=== PATIENT | male | born 1940 | race Caucasian/White ===

== ENCOUNTER → 2017-10-10 | Outpatient (CLI) | payer MEDICARE, OTHER | END | disposition home or self-care (01) | LOC: RAD 13:05 | DX: J43.8 Other emphysema (principal); I11.0 Hypertensive heart disease with heart failure; I50.9 Heart failure, unspecified; E11.9 Type 2 diabetes mellitus without complications | CPT/HCPCS: 71046 ==

== ENCOUNTER → 2018-06-16 | Day surgery (SDC) | payer MEDICARE, OTHER ==
[~2018-06-16] MED LIST: ASCO500T2 PO; ASPI-252 PO; ASPI-630 PO; CELE200C PO; CLOP75TA PO; FERR325T14 PO; GABA300C18 PO; GEMF600T8 PO; HYDROmorphone 2 MG/ML VIAL IV PRN; IV RINGERS,LACTATED 1000ML 1,000 ML IV SCH; LIDOCAINE 1% PF 2 ML VIAL. ID PRN; LIDOCAINE 1% PF 2 ML VIAL. ONE; LOSA1TAB19 PO; METF500T16 PO; METO25TA4 PO; MORPHINE SULFATE 2 MG/ML VIAL. IV PRN; NIAC1000 PO; OMEG-123 PO; ONDANSETRON PF 4 MG/2 ML VIAL. IV PRN; OXYC1TAB15 PO; PROCHLORPERAZINE 10 MG/2 ML VIAL. IV PRN; PROPOFOL 40 ML IV ONE; PYRI25TA2 PO; UBID50TA PO; VITA10003 PO; VITA1TAB54 PO; fentaNYL PF VIAL 100 MCG/2 ML VIAL IV PRN
[2018-06-16 11:13] VITALS: BP 140/58
--- NOTE | 2018-06-16 21:36 | CONS ---
DATE OF CONSULTATION: 06/16/2018 UPDATE HISTORY AND PHYSICAL REFERRING PHYSICIAN: Christina Bhakta M.D. REASON FOR CONSULTATION: Anemia. HISTORY OF PRESENT ILLNESS: A 77-year-old male whose past medical history is significant for diabetes, GERD, history of organic heart disease, status post ID, history of collagenous colitis and diarrhea, seen for interval colon exam. Bowel habits have been regular, without diarrhea or constipation. Hemoglobin has been 12.4. No family history of colon polyps or colon cancer is noted. His last colonoscopy was in 2013. With the recent lab findings, he requested additional evaluation. PAST MEDICAL HISTORY: Hypertension, diabetes and anemia. ALLERGIES: IODINE, STATINS, TIERNEY, BACITRACIN, NEOMYCIN AND POLYMYXIN B. MEDICATIONS: Include vitamin C, Ecotrin, Plavix, ferrous sulfate, gabapentin, gemfibrozil, losartan, metformin, metoprolol, Niaspan and pyridoxine. FAMILY AND SOCIAL HISTORY: He is retired. He is a nondrinker. Nonsmoker. PAST SURGICAL HISTORY: Status post appendectomy, back surgery, CABG, eye surgery, joint replacement, hernia repair and vasectomy. REVIEW OF SYSTEMS: Per records. PHYSICAL EXAMINATION: GENERAL: Reveals a well-nourished, well-developed male. VITAL SIGNS: Temperature 98.5, pulse 91 and respirations 20. HEENT EXAMINATION: Normocephalic, atraumatic head. Pupils and extraocular movements are not tested. Sclerae anicteric. NECK: Supple. LUNGS: Clear. CARDIOVASCULAR EXAMINATION: Reveals an S1, S2 without S3, S4 or appreciable murmur. ABDOMEN: Examination reveals a soft abdomen. Normal bowel sounds, without appreciable hepatosplenomegaly. EXTREMITIES: Examination reveals no cyanosis, clubbing or edema. IMPRESSION AND PLAN: Anemia, history of collagenous colitis. Colonoscopy interval is recommended. Risks and benefits have been discussed. The patient is willing to proceed at this time. I would like to thank Dr. Bhakta for allowing us to consult and participate in this patient's care. JOANNA BUTCHER MD DR: MALACHI/kierra JOB#: [id number] / [id number]
--- NOTE | 2018-06-19 15:06 | PATHOLOGY ---
[facility] Accession Number: [id number] . 01 Material submitted: . SIGMOID POLYP . 01 Clinical history: . Anemia . 02 Diagnosis: Colon biopsy, sigmoid polyp: - Hyperplastic polyp. LBQ/06/19/2018 . 02 Comment: There are no adenomatous changes or evidence of malignancy. (JPM/db; 06/19/2018) . 02 Electronically signed: . Jeffrey Fuentes MD, Pathologist NPI- [id number] . 01 Gross description: . Received in formalin labeled "Anthony Brownlee, sigmoid polyp," are 2 segments of reid soft tissue measuring 0.9 x 0.3 x 0.2 cm in aggregate dimensions and ranging from 0.4 to 0.5 cm in maximum dimension. The specimen is submitted entirely in cassette A1. (TSD; 06/16/2018) TOB/TOB . 02 Pathologist provided ICD-10: K63.5 . 02 CPT . 847999 Specimen Comment: A courtesy copy of this report has been sent to Specimen Comment: [phone], . Specimen Comment: Report sent to and Specimen Comment: A duplicate report has been generated due to demographic updates. Performed at: 01 [facility] [address], [place], [place] [id number] MD Ford Christian MD Phone: [phone] Performed at: 02 [facility] [address] [place], [place] [id number] MD Jeffrey Fuentes MD Phone: [phone]
== END | disposition home or self-care (01) ==
LOC: SURG 08:53
PROVIDERS: ATTEND Internal Medicine Gastroenterology
DX: K63.5 Polyp of colon (principal); K57.30 Diverticulosis of large intestine without perforation or abscess without bleeding; K64.0 First degree hemorrhoids; D50.9 Iron deficiency anemia, unspecified; E11.9 Type 2 diabetes mellitus without complications; K21.9 Gastro-esophageal reflux disease without esophagitis; I25.2 Old myocardial infarction; I11.9 Hypertensive heart disease without heart failure; Z88.1 Allergy status to other antibiotic agents; Z88.8 Allergy status to other drugs, medicaments and biological substances; Z79.899 Other long term (current) drug therapy; Z90.49 Acquired absence of other specified parts of digestive tract; Z95.5 Presence of coronary angioplasty implant and graft; Z98.52 Vasectomy status; Z98.890 Other specified postprocedural states; Z91.041 Radiographic dye allergy status; Z79.84 Long term (current) use of oral hypoglycemic drugs
CPT/HCPCS: 45380; J2704; 88305

== ENCOUNTER → 2019-04-23 | Outpatient (CLI) | payer MEDICARE, OTHER ==
[2018-06-16 11:13] VITALS: BP 140/58
[~2019-04-23] MED LIST changes: -HYDROmorphone 2 MG/ML VIAL IV PRN; -IV RINGERS,LACTATED 1000ML 1,000 ML IV SCH; -LIDOCAINE 1% PF 2 ML VIAL. ID PRN; -LIDOCAINE 1% PF 2 ML VIAL. ONE; -MORPHINE SULFATE 2 MG/ML VIAL. IV PRN; -ONDANSETRON PF 4 MG/2 ML VIAL. IV PRN; -PROCHLORPERAZINE 10 MG/2 ML VIAL. IV PRN; -PROPOFOL 40 ML IV ONE; -fentaNYL PF VIAL 100 MCG/2 ML VIAL IV PRN
--- NOTE | 2019-04-23 14:21 | RAD ---
Bilateral lower extremity arterial duplex ultrasound. INDICATION: Peripheral artery disease. TECHNIQUE: Grayscale, spectral and color Doppler imaging of the bilateral lower extremity arteries including the common femoral, deep femoral, proximal mid and distal femoral, popliteal, posterior tibial, peroneal, anterior tibial and dorsalis pedis arteries was performed. FINDINGS: Right lower extremity: BLOW MOLD TECHNICIAN 156 cm/s DFA 98 SFA proximal 117 SFA mid 113 SFA distal 116 Popliteal 85 LIP OF SHANK CUTTER proximal 123 LIP OF SHANK CUTTER distal 111 Peroneal 48 OLIVIER 368 DPA 61 Left lower extremity: BLOW MOLD TECHNICIAN 195 cm/s DFA 65 SFA proximal 117 SFA mid 134 SFA distal 122 Popliteal 112 LIP OF SHANK CUTTER proximal 97 LIP OF SHANK CUTTER distal 100 OLIVIER 119 DPA 68 All waveforms were triphasic except for the bilateral deep femoral arteries and the left dorsalis pedis artery. IMPRESSION: Elevated velocities in the OLIVIER on the right, suggesting hemodynamically significant stenosis . Otherwise no significant stenosis. Electronically signed by: Rodney Pinzon MD (04/23/2019 2:18 PM) [facility]
== END | disposition home or self-care (01) ==
LOC: US 14:27
PROVIDERS: ATTEND Family Medicine
DX: I73.9 Peripheral vascular disease, unspecified (principal)
CPT/HCPCS: 93925

== ENCOUNTER 2020-02-16 00:29 | Emergency (ER) | payer MEDICARE, OTHER ==
[~2020-02-16] VITALS: Ht 188 cm; Wt 110.0 kg
[~2020-02-16 00:29] MED LIST changes: -ASCO500T2 PO; +ASCO500T4 PO
[2020-02-16 00:32] VITALS: BP 164/77
[2020-02-16] MEDS ORDERED: CEPH-264 PO (00:49)
--- NOTE | 2020-02-16 00:49 | PHYS DOC ---
Past Medical History Past Medical History: CAD, Diabetes-Type II, Hypertension Past Surgical History: Coronary Bypass Surgery, Other Additional Past Surgical Histo: STENT X9 Smoking Status: Former Smoker Alcohol Use: None Drug Use: None General Adult EDM: Chief Complaint: TOE PROBLEM HPI: HPI: Patient is a 79 year old male with a history of neuropathy who accidentally pulled off his right great toenail just prior to arrival. Patient did not feel anything and had some bleeding which is currently controlled. Patient denies any pain at this time. Patient does note some mild erythema to his foot. Review of Systems: Review of Systems: Constitutional: Denies fever or chills. [] Eyes: Denies change in visual acuity. [] HENT: Denies nasal congestion or sore throat. [] Respiratory: Denies cough or shortness of breath. [] Cardiovascular: Denies chest pain or edema. [] GI: Denies abdominal pain, nausea, vomiting, bloody stools or diarrhea. [] : Denies dysuria. [] Musculoskeletal: Denies back pain or joint pain. [] Integument: Denies rash. [] Neurologic: Denies headache, focal weakness or sensory changes. [] Endocrine: Denies polyuria or polydipsia. [] Lymphatic: Denies swollen glands. [] Psychiatric: Denies depression or anxiety. [] Heart Score: Risk Factors: Risk Factors: DM, Current or recent (<one month) smoker, HTN, HLP, family history of CAD, obesity. Risk Scores: Score 0 - 3: 2.5% MACE over next 6 weeks - Discharge Home Score 4 - 6: 20.3% MACE over next 6 weeks - Admit for Clinical Observation Score 7 - 10: 72.7% MACE over next 6 weeks - Early Invasive Strategies Allergies: Allergies: Allergies Coded Allergies Type Severity Reaction Last Updated Verified Wergvxm-Rzg-Kpl Reductase Inhibitor Allergy Intermediate 06/16/18 No bacitracin Allergy Intermediate 06/16/18 No neomycin Allergy Intermediate 06/16/18 No polymyxin B Allergy Intermediate 06/16/18 No Iodinated Contrast Media Adverse Reaction Intermediate Hives 06/16/18 Yes Physical Exam: PE: Constitutional: Well developed, well nourished, no acute distress, non-toxic appearance. [] HENT: Normocephalic, atraumatic, bilateral external ears normal, no trismus nose normal. [] Eyes: PERRLA, EOMI, conjunctiva normal, no discharge. [] Neck: Normal range of motion, no tenderness, supple, no stridor. [] Cardiovascular:Heart rate regular rhythm, peripheral pulses are intact, cap refills less than 2 seconds Lungs & Thorax: Bilateral breath sounds clear to auscultation [] Abdomen: Bowel sounds normal, soft, no tenderness, no masses, no pulsatile masses. [] Skin: Mild erythema to the right foot Back: No tenderness, no CVA tenderness. [] Extremities: No tenderness, no cyanosis, no clubbing, ROM intact, avulsion of the right great toenail mild erythema to the right foot, prior right fifth toe amputation Neurologic: Alert and oriented X 3, normal motor function, decreased sensation to the toes no focal deficits noted. [] Psychologic: Affect normal, judgement normal, mood normal. [] Current Patient Data: Vital Signs: Vital Signs Date Time Temp Pulse Resp B/P (MAP) Pulse Ox O2 Delivery O2 Flow Rate FiO2 02/16/20 00:32 98.2 73 17 164/77 (106) 94 Room Air 98.2 EKG: EKG: [] Radiology/Procedures: Radiology/Procedures: [] Course & Med Decision Making: Course & Med Decision Making Pertinent Labs and Imaging studies reviewed. (See chart for details) [] 79-year-old male presents with an avulsion to the right great toenail. Bleeding is controlled. Patient denies any pain. Patient be placed on antibiotics. Return precautions given Dragon Disclaimer: Lai Disclaimer: This electronic medical record was generated, in whole or in part, using a voice recognition dictation system. Departure Departure Impression: Primary Impression: Nail avulsion, toe Disposition: 02 DC/TRF OTHER SHORT TERM HOS Condition: STABLE Referrals: ROXANNE DIAZ MD (PCP) 2-3 DAYS Patient Instructions: Finger Avulsion Additional Instructions: EMERGENCY DEPARTMENT GENERAL DISCHARGE INSTRUCTIONS THANK YOU for coming to [facility] Emergency Department (ED) today and trusting us with your care. We trust that you had a positive experience in our Emergency Department. If you wish to speak to the department Management you can contact the wall mirror department supervisor at . YOUR FOLLOW UP INSTRUCTIONS ARE FOLLOWS: Do you have a private doctor? If you do not have a private doctor, please ask for a resource list of physicians or clinics that may be able to assist you with follow up care. The Emergency Physician has interpreted your x-rays. The X-ray specialist will also review them. If there is a change in the findings you will be notified in 48 hours when at all possible. A lab test or lab culture may have been done, your results will be reviewed and you will be notified if you need a change in treatment. ADDITIONAL INSTRUCTIONS AND INFORMATION Your care today has been supervised by a physician who is specially trained in emergency care. Many problems require more than one evaluation for a complete diagnosis and treatment. We recommend that you schedule your follow up appointment as recommended to ensure complete treatment of your illness or injury. If you are unable to obtain follow up care and continue to have a problem, or if your condition worsens we recommend that you return to the ED. We are not able to safely determine your condition over the phone nor are we able to give sound medical advice over the phone. For these safety reasons, if you call for medical advice we will ask you to come to the ED for further evaluation If you have any questions regarding these discharge instructions please call the ED at . SAFETY INFORMATION In the interest of safety, wellness, and injury prevention; we encourage you to wear your seatbelt, if you smoke; quit smoking, and we encourage your family to use protective helmet for bicycling and other sporting events that present an increased risk for head injury. IF YOUR SYMPTOMS WORSEN OR NEW SYMPTOMS DEVELOP, OR YOU HAVE CONCERNS ABOUT YOUR CONDITION; OR IF YOUR CONDITION WORSENS WHILE YOU ARE WAITING FOR YOUR FOLLOW UP APPOINTMENT; EITHER CONTACT YOUR PRIMARY CARE DOCTOR, THE PHYSICIAN WHOSE NAME AND NUMBER YOU WERE GIVEN, OR RETURN TO THE ED IMMEDIATELY. Scripts Cephalexin (KEFLEX) 500 Mg Capsule 500 MG PO QID for 7 Days, #28 CAP Prov: JOANNA ORTIZ MD 02/16/20 JOANNA ORTIZ MD Feb 16, 2020 00:49
== END 2020-02-16 01:10 | disposition home or self-care (01) ==
LOC: ER 00:29
DX: S91.201A Unspecified open wound of right great toe with damage to nail, initial encounter (principal); E11.40 Type 2 diabetes mellitus with diabetic neuropathy, unspecified; I10 Essential (primary) hypertension; I25.10 Atherosclerotic heart disease of native coronary artery without angina pectoris; Z87.891 Personal history of nicotine dependence; Z95.1 Presence of aortocoronary bypass graft; Z95.5 Presence of coronary angioplasty implant and graft; Z88.1 Allergy status to other antibiotic agents; Z91.041 Radiographic dye allergy status; X58.XXXA Exposure to other specified factors, initial encounter; Y93.89 Activity, other specified; Y92.89 Other specified places as the place of occurrence of the external cause; Y99.8 Other external cause status
CPT/HCPCS: 99283

== ENCOUNTER 2020-04-26 03:24 | Emergency (ER) | payer MEDICARE, OTHER ==
[~2020-04-26] VITALS: Ht 177.8 cm; Wt 75.0 kg
[~2020-04-26 03:24] MED LIST changes: +CEPH-264 PO
--- NOTE | 2020-04-26 03:55 | PHYS DOC ---
Past Medical History Past Medical History: CAD, Cancer (Prostate cancer), Diabetes-Type II, Hy pertension Past Surgical History: Coronary Bypass Surgery, Other Additional Past Surgical Histo: STENT X9 Smoking Status: Former Smoker Alcohol Use: None Drug Use: None General Adult HPI: HPI: Patient is a 79-year-old male who presents via EMS for falls. EMS was called earlier in the night as patient "slid out of his chair" per but decision was made not to transport patient to our facility. Later in the evening, patient was laying in bed and attempting to get out of bed to go to the bathroom when he "slid out of bed" per . States he was able to get up but is doing well and started walking down to the bathroom and had an unwitnessed fall for which he was unable to get up from. does not think patient hit his head b ut patient cannot fully remember because her events leading up to fall. The mechanism of injury was ground-level fall patient does admit he did not have any syncope or near syncope feelings, he is asymptomatic on arrival. Does not take any blood thinners, he does not admit any known lacerations or bony abnormalities, no seizure, neck pain, numbness/weakness past baseline, fever or vomiting since episode. EMS was called and evaluated patient and decision was made to transport him to our facility because "I think you might have a urinary infection" per . Further history obtained from while in ER, she reports patient has history of bladder cancer and had some sort of surgery in March. Was seen by urologists approximately 1 week ago for hematuria and had Robbins catheter placed. He had issues with said Robbins catheter and went to local ER for evaluation where he had his catheter exchanged and irrigated. He followed up with his urologists in outpatient setting 48 hours ago and discharged home with new prescription of Bactrim for infection, he has been taking this without any compliance issues Review of Systems: Review of Systems: Fourteen body systems of review of systems have been reviewed. See HPI for pertinent positives and negative responses, other james all other systems are negative, non-pertinent or non-contributory Heart Score: HEART Score for Chest Pain: HEART Score for Chest Pain Response (Comments) Value History Slighlty/Non-Suspicious 0 ECG Normal 0 Age > 65 2 Risk Factors >3 Risk Factors or Hx CAD 2 Troponin < Normal Limit 0 Total 4 Risk Factors: Risk Factors: DM, Current or recent (<one month) smoker, HTN, HLP, family history of CAD, obesity. Risk Scores: Score 0 - 3: 2.5% MACE over next 6 weeks - Discharge Home Score 4 - 6: 20.3% MACE over next 6 weeks - Admit for Clinical Observation Score 7 - 10: 72.7% MACE over next 6 weeks - Early Invasive Strategies Allergies: Allergies: Allergies Coded Allergies Type Severity Reaction Last Updated Verified Koyyrjs-Ywq-Pds Reductase Inhibitor Allergy Intermediate 06/16/18 No bacitracin Allergy Intermediate 06/16/18 No neomycin Allergy Intermediate 06/16/18 No polymyxin B Allergy Intermediate 06/16/18 No Iodinated Contrast Media Adverse Reaction Intermediate Hives 06/16/18 Yes Physical Exam: PE: Constitutional: Pt is oriented to person, place, and time. Pt appears well-developed and well- nourished. HEENT: Head: Normocephalic and atraumatic. TMs clear, no hemotympanum Conjunctivae and EOM are normal. Pupils are equal, round, and reactive to light. Oropharynx is clear and moist. No hematomas or lacerations or abrasions to face or scalp OP clear, no blood, no malocclusion, dentition intact Nares clear, no nasal septal hematoma Midface stable Neck: C-spine midline nontender, no step-offs Cardiovascular: Normal rate, regular rhythm and normal heart sounds. Pulmonary/Chest: Effort normal and breath sounds normal. No respiratory distress. No wheezes. CTA bilaterally Abdominal: Soft. Bowel sounds are normal. Pt exhibits no distension. There is no tenderness. Robbins cath in place Musculoskeletal: No bony tenderness to extremities, no deformities, full ROM extremities Chest wall stable Pelvis stable and non-tender No vertebral TTP and spine without stepoffs Neurological: Pt is alert and oriented to person, place, and time. Moving all extremities willfully, able to wiggle all fingers and toes Alert and oriented x 3 Motor and sensory function grossly intact, patient does admit decreased sensation due to underlying neuropathy of bilateral lower extremities NIHSS 0 Skin: Skin is warm and dry. No abrasions, no lacerations Psychiatric: Behavior is appropriate for situation Current Patient Data: Labs: Laboratory Tests Test 04/26/20 03:47 White Blood Count 9.0 x10^3/uL Red Blood Count 2.72 x10^6/uL Hemoglobin 9.2 g/dL Hematocrit 26.9 % Mean Corpuscular Volume 99 fL Mean Corpuscular Hemoglobin 34 pg Mean Corpuscular Hemoglobin Concent 34 g/dL Red Cell Distribution Width 17.7 % Platelet Count 271 x10^3/uL Neutrophils (%) (Auto) 71 % Lymphocytes (%) (Auto) 13 % Monocytes (%) (Auto) 11 % Eosinophils (%) (Auto) 4 % Basophils (%) (Auto) 1 % Neutrophils # (Auto) 6.4 x10^3/uL Lymphocytes # (Auto) 1.1 x10^3/uL Monocytes # (Auto) 1.0 x10^3/uL Eosinophils # (Auto) 0.4 x10^3/uL Basophils # (Auto) 0.1 x10^3/uL Sodium Level 137 mmol/L Potassium Level 4.6 mmol/L Chloride Level 102 mmol/L Carbon Dioxide Level 27 mmol/L Anion Gap 8 Blood Urea Nitrogen 21 mg/dL Creatinine 1.6 mg/dL Estimated GFR (Cockcroft-Gault) 41.8 Glucose Level 138 mg/dL Calcium Level 9.3 mg/dL Troponin I Quantitative 0.052 ng/mL Current Medications Medications (Trade) Dose Ordered Sig/Jace Route PRN Reason Start Time Stop Time Status Last Admin Dose Admin Sodium Chloride 500 ml @ 500 mls/hr 1X ONCE IV 04/26/20 04:30 04/26/20 05:29 04/26/20 04:30 Vital Signs: Vital Signs Date Time Temp Pulse Resp B/P (MAP) Pulse Ox O2 Delivery O2 Flow Rate FiO2 04/26/20 03:24 98.6 74 18 121/56 (77) 93 Room Air 98.6 EKG: EKG: EKG ordered and interpreted by myself at 0356 hrs. as sinus rhythm at 65 bpm, prolonged QRS at 148 otherwise unremarkable intervals, left axis deviation, right bundle branch block present without any obvious acute ischemic findings, no STEMI Radiology/Procedures: Radiology/Procedures: EXAM: CT Head without IV contrast CLINICAL HISTORY: Reason: unwitnessed fall, generalized weakness / Spl. Instructions: / History: COMPARISON: None. TECHNIQUE: Routine CT of the head without contrast. PQRS compliance statement - One or more of the following individualized dose reduction techniques were utilized for this study: 1. Automated exposure control 2. Adjustment of the mA and/or kV according to patient size 3. Use of iterative reconstruction technique FINDINGS: There is no evidence of hemorrhage, mass or extra-axial fluid collection. Erazo-white differentiation is maintained with no evidence of edema. Subcortical, periventricular and the white matter as well as pontine hypoattenuation likely changes of chronic small vessel disease. There is no mass effect or shift of the intracranial structures. The ventricles and cerebral sulci are prominent for the patients stated age consistent with generalized cerebral volume loss. The brainstem is otherwise grossly unremarkable. 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 The calvarium demonstrates no evidence of fracture or focal lesion. There is normal aeration of the visualized paranasal sinuses and mastoid air cells. The visualized portions of the orbits are normal. IMPRESSION: 1. No evidence for acute intracranial process. 2. White matter changes likely chronic small vessel disease. Electronically signed by: Shaun Yan MD (04/26/2020 4:29 AM) [facility] Course & Med Decision Making: Course & Med Decision Making Patient AO x3, at baseline mentation confirmed by at bedside without any reported hallucinations or concerning behavioral changes in the ER. Physical exam grossly unremarkable. I reviewed ER work-up findings with both patient and . No emergent or surgical findings but I did disclose finding of elevated serum creatinine which is concerning given that patient was recently prescribed Bactrim whilst taking Metformin, they are unsure if he has chronic kidney disease and/or what his baseline serum creatinine is. Patient responded to IV fluid rehydration, I stressed need for close outpatient follow-up to review today's ER visit and for laboratory recheck of the blood levels and kidney function. Strict return precautions were also discussed at length with good understanding by patient. Patient and voiced understanding and agreement with the plan. Patient and knows to come back for repeat evaluation if concerning signs or symptoms present prior to outpatient follow-up. He modynamically stable, ambulatory and well-appearing at time of disposition. Dragon Disclaimer: Dragon Disclaimer: This electronic medical record was generated, in whole or in part, using a voice recognition dictation system. Departure Departure Impression: Primary Impression: Frequent falls Additional Impressions: Elevated serum creatinine Normocytic anemia Disposition: 01 DC HOME SELF CARE/HOMELESS Condition: GOOD Referrals: ROXANNE DIAZ MD (PCP) Patient Instructions: Fall Prevention and Home Safety Additional Instructions: As discussed prior to ER departure, I believe would call your primary care physician immediately after ER departure to review your ER visit today. As disclose, vital signs, physical examination and ER work-up were grossly nonconcerning. We discussed lower blood levels that did not meet criteria and/or need for further work-up or intervention such as blood replacement therapy. I also disclosed findings of elevated creatinine kidney function level given that you are on Metformin therapy and recently prescribed Bactrim antibiotic which also goes through the kidneys. Please continue taking all currently prescribed medications and follow-up with your primary care physician as I would recommend you have a repeat CBC and BMP blood labs to be drawn to recheck your blood levels and kidney function in outpatient setting. If any concerning signs or symptoms present prior to outpatient follow-up please do not hesitate to come back for repeat evaluation is a pleasure to take care of you and I wish you the best going forward. ENZO CARDENAS DO Apr 26, 2020 03:55
[2020-04-26 03:56] LABS: BASO # 0.1 x10^3/uL (0.0-0.2); BASO % 1 % (0-3); EOS # 0.4 x10^3/uL (0.0-0.7); EOS % 4 % (0-3); HEMATOCRIT 26.9 % (39.0-53.0); HEMOGLOBIN 9.2 g/dL (13.0-17.5); LYMPH # 1.1 x10^3/uL (1.0-4.8); LYMPH % 13 % (24-48); MEAN CORPUSCULAR HEMOGLOBIN 34 pg (25-35); MEAN CORPUSCULAR HGB CONC 34 g/dL (31-37); MEAN CORPUSCULAR VOLUME 99 fL (79-100); MONO % 11 % (0-9); NEUT # 6.4 x10^3/uL (1.8-7.7); NEUT % 71 % (31-73); PLATELET COUNT 271 x10^3/uL (140-400); RED BLOOD COUNT 2.72 x10^6/uL (4.30-5.70); RED CELL DISTRIBUTION WIDTH 17.7 % (11.5-14.5)
[2020-04-26 04:01] LABS: CALCIUM 9.3 mg/dL (8.5-10.1); CREATININE 1.6 mg/dL (0.7-1.3); GFR 41.8; POTASSIUM 4.6 mmol/L (3.5-5.1)
[2020-04-26] MEDS ORDERED: IV NORMAL SALINE 500ML BAG 500 ML IV ONE (04:30)
--- NOTE | 2020-04-26 04:32 | RAD ---
EXAM: CT Head without IV contrast CLINICAL HISTORY: Reason: unwitnessed fall, generalized weakness / Spl. Instructions: / History: COMPARISON: None. TECHNIQUE: Routine CT of the head without contrast. PQRS compliance statement - One or more of the following individualized dose reduction techniques wer e utilized for this study: 1. Automated exposure control 2. Adjustment of the mA and/or kV according to patient size 3. Use of iterative reconstruction technique FINDINGS: There is no evidence of hemorrhage, mass or extra-axial fluid collection. Erazo-white differentiation is maintained with no evidence of edema. Subcortical, periventricular and the white matter as well as pontine hypoattenuation likely changes of chronic small vessel disease. There is no mass effect or shift of the intracranial structures. The ventricles and cerebral sulci are prominent for the patients stated age consistent with generaliz ed cerebral volume loss. The brainstem is otherwise grossly unremarkable. Wedge-shaped low-attenuation within cerebellum likel y old cerebellar infarcts. The calvarium demonstrates no evidence of fracture or focal lesion. There is normal aeration of the visualized paranasal sinuses and mastoid air cells. The visualized portions of the orbits are normal. IMPRESSION: 1. No evidence for acute intracranial process. 2. White matter changes likely chronic small vessel disease. Electronically signed by: Shaun Yan MD (04/26/2020 4:29 AM) [facility]
--- NOTE | 2020-04-26 04:33 | RAD ---
EXAM: AP View of the chest DATE: 04/26/2020 3:50 AM INDICATION: Reason: unwitnessed fall / Spl. Instructions: / History: COMPARISON: No Prior FINDINGS: The heart is not enlarged. Aortic calcifications are seen. Changes of CABG are noted. Patchy opacities left lung base likely atelectasis or developing consolidation. No pleural effusion o r pneumothorax. IMPRESSION: Patchy opacities left lung base likely atelectasis or developing consolidation. Based on appearance, favor atelectasis. Electronically signed by: Shaun Yan MD (04/26/2020 4:30 AM) [facility]
[2020-04-26 05:03] VITALS: BP 109/55
--- NOTE | 2020-04-26 18:01 | EKG ---
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
[2020-04-26] MEDS ORDERED: CEPH500T PO (21:14)
== END 2020-04-26 05:16 | disposition home or self-care (01) ==
LOC: ER 03:24
DX: D64.9 Anemia, unspecified (principal); R79.89 Other specified abnormal findings of blood chemistry; R29.6 Repeated falls; I10 Essential (primary) hypertension; E11.9 Type 2 diabetes mellitus without complications; I25.10 Atherosclerotic heart disease of native coronary artery without angina pectoris; Z87.891 Personal history of nicotine dependence; Z95.1 Presence of aortocoronary bypass graft; Z95.5 Presence of coronary angioplasty implant and graft; Z91.041 Radiographic dye allergy status; Z88.1 Allergy status to other antibiotic agents
CPT/HCPCS: 36415; 70450; 71045; 80048; 84484; 85025; 93005; J7040; 99285-25

== ENCOUNTER 2020-04-26 17:40 | Emergency (ER) | payer MEDICARE, OTHER ==
[~2020-04-26] VITALS: Ht 188 cm; Wt 120.0 kg
[~2020-04-26 17:40] MED LIST changes: +GEMF600T20 PO; -GEMF600T8 PO
[2020-04-26 18:10] VITALS: BP 169/75
--- NOTE | 2020-04-26 19:19 | PHYS DOC ---
Past Medical History Past Medical History: CAD, Diabetes-Type II, Hypertension Past Surgical History: Coronary Bypass Surgery, Other Additional Past Surgical Histo: stent x 9, Prostate surgery in March Past Surgical History cataract, ganglion cyst removal, L knee replacement, lumbar laminectomy, submandibular gland removal, Smoking Status: Never Smoker Alcohol Use: Rarely Drug Use: None General Adult EDM: Chief Complaint: URINE CATHETER PROBLEM HPI: HPI: Patient is a 79 year old male who presents POV with abdominal pain and leakage around urinary catheter. His son is present in the room and contributed to his medical history. He has a PMH significant for CAD with 9 stents and a quadruple bypass, DM2, and BPH that received surgical treatment for on 03/27/2020. On Tue the he experienced an episode of hematuria and had a catheter placed at [facility] at the recommendation of his urologist. On he experienced some complications with his catheter and "had his bladder flushed with 2 L of fluid" and the catheter replaced but his urologist in outpatient setting. He was started on Bactrim at this time. Yesterday he presented to the ED after a ground level fall and subjective fever of 101F. Today he reports a gradual onset of abdominal pain and started this afternoon and has progressively worsened throughout the day. He currently states the pain is 2/10 and worsened by any type of abdominal pressure. He also endorses green urine leaking around his catheter. He is AOx3 endorses cold sweats today but denies nausea, vomiting, chest pain, palpitations, SOB, or cough. Review of Systems: Review of Systems: Constitutional: Endorses fever or chills Respiratory: Denies cough or shortness of breath Cardiovascular: Denies chest pain or palpitations GI: Admits abdominal pain, Denies nausea, or vomiting. : Reports barlow cath. Endorses recent history of hematuria Musculoskeletal: Denies muscle aches, back ache Integument: Denies rash or skin lesions Neurologic: Denies headache, focal weakness or sensory changes Complete systems were reviewed and found to be within normal limits, except as d ocumented in this note. Allergies: Allergies: Allergies Coded Allergies Type Severity Reaction Last Updated Verified Ygcjxas-Bei-Gjo Reductase Inhibitor Allergy Intermediate 06/16/18 No bacitracin Allergy Intermediate 06/16/18 No neomycin Allergy Intermediate 06/16/18 No polymyxin B Allergy Intermediate 06/16/18 No Iodinated Contrast Media Adverse Reaction Intermediate Hives 06/16/18 Yes Physical Exam: PE: Constitutional: Well developed, well nourished, no acute distress, non-toxic appearance HENT: Normocephalic, atraumatic Eyes: EOMI, conjunctiva normal, no discharge Neck: Normal range of motion, no tenderness, supple Lungs & Thorax: No respiratory distress, equal chest rise and fall CV: regular rate rhythm, no murmur Abdomen: significant suprapubic tenderness to palpation, no tenderness in RUQ, LUQ, midline abdominal hernia Skin: Warm, dry, no erythema, no rash Extremities: No tenderness, ROM intact, no edema/ 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 (See chart for details) This 79 yo male presents POV to the ED with lower abdominal pain and urine leaking from around his catheter. He has a PMH significant for CAD, DM2 and recent prostate surgery on 03/27/20. He experienced an episode of hematuria with barlow placement. He had a barlow obstruction on 04/24 and he was started on bactrim and had his barlow replaced at that time. Yesterday he was treated in the ED for a fall. Today he has suprapubic tenderness, and green urine leaking around his catheter. His catheter was removed in the ED. Nursing stated there were multiple brown sediments/clots obstructing the tube. He voided green urine into a urinal which revealed hematuria and bacteria. He will be transitioned to empiric antibiotics for complicated UTI (keflex) pending cultures. His barlow was replaced and flushed without subsequent complication. He is alert, oriented and afebrile. Patient stable for discharge with outpatient follow-up with PCP and urologist. Discussed findings and plan with patient, who acknowledges understanding and agreement. Lai Disclaimer: Dragon Disclaimer: This electronic medical record was generated, in whole or in part, using a voice recognition dictation system. Departure Departure Impression: Primary Impression: Urinary tract infection Qualified Codes: T83.511A - Infection and inflammatory reaction due to indwelling urethral catheter, initial encounter; N39.0 - Urinary tract infection, site not specified Disposition: DC HOME SELF CARE/HOMELESS Condition: STABLE Referrals: ROXANNE DIAZ MD (PCP) Patient Instructions: Catheter-Associated Urinary Tract Infection FAQs - [place], Barlow Catheter Care, Adult Additional Instructions: Discontinue previously prescribed antibiotics. Take other medications as directed. Follow with your urologist as previously scheduled. Scripts Cephalexin (CEPHALEXIN) 500 Mg Tablet 1 TAB PO TID for 10 Days, #30 TAB Prov: CRISTY ROSE DO 04/26/20 CRISTY ROSE DO Apr 26, 2020 19:19
[2020-04-26 19:51] LABS: BILIRUBIN,URINE NEGATIVE (NEG); COLOR,URINE GREEN; NITRITE,URINE NEGATIVE (NEG); PH,URINE 6.5 (<5.0-8.0); PROTEIN,URINE NEGATIVE (NEG-TRACE); UROBILINOGEN,URINE 0.2 mg/dL (0.2 mg/dL)
[2020-04-26 19:55] LABS: CLARITY,URINE HAZY
[2020-04-26 19:56] LABS: BACTERIA,URINE MODERATE /HPF (0-FEW); RBC,URINE >40 /HPF (0-2); WBC,URINE >40 /HPF (0-4)
[2020-04-26] MEDS ORDERED: CEPHALEXIN 250 MG CAPSULE. PO ONE (20:00)
[2020-04-26] MEDS ORDERED: CEPH500T PO (21:14)
== END 2020-04-26 21:17 | disposition home or self-care (01) ==
LOC: ER 17:40
DX: T83.511A Infection and inflammatory reaction due to indwelling urethral catheter, initial encounter (principal); N39.0 Urinary tract infection, site not specified; E11.9 Type 2 diabetes mellitus without complications; I10 Essential (primary) hypertension; I25.10 Atherosclerotic heart disease of native coronary artery without angina pectoris; Z95.1 Presence of aortocoronary bypass graft; Z95.5 Presence of coronary angioplasty implant and graft; Z88.1 Allergy status to other antibiotic agents; Z91.041 Radiographic dye allergy status; Y84.6 Urinary catheterization as the cause of abnormal reaction of the patient, or of later complication, without mention of misadventure at the time of the procedure
CPT/HCPCS: 36415; 51702; 70450; 71045; 80048; 81001; 84484; 85025; 87077; 87086; 87186; 93005; 99284; J7040

== ENCOUNTER 2020-04-27 14:42 | Emergency (ER) | payer MEDICARE, OTHER ==
[~2020-04-27] VITALS: Ht 190.5 cm; Wt 113.0 kg
[~2020-04-27 14:42] MED LIST changes: +CEPH500T PO
[2020-04-27 14:51] VITALS: BP 133/54
--- NOTE | 2020-04-27 15:06 | PHYS DOC ---
Past Medical History Past Medical History: CAD, Diabetes-Type II, Hypertension Past Surgical History: Coronary Bypass Surgery, Other Additional Past Surgical Histo: stent x 9, Prostate surgery in March Smoking Status: Never Smoker Alcohol Use: Rarely Drug Use: None Adult General Chief Complaint Chief Complaint: URINE CATHETER PROBLEM HPI HPI Patient is a 79 year old male with known benign prostatic hypertrophy and chronic indwelling Robbins presents emergency department concerned that his catheter is no longer working. States that he feels like it was not draining approximate 2 hours prior to arrival. Denies any nausea, vomiting, fever, chills. Patient is resuming treated for urinary tract infection. Review of Systems Review of Systems Constitutional: Denies fever or chills [] Eyes: Denies change in visual acuity, redness, or eye pain [] HENT: Denies nasal congestion or sore throat [] Respiratory: Denies cough or shortness of breath [] Cardiovascular: No additional information not addressed in HPI [] GI: Denies abdominal pain, nausea, vomiting, bloody stools or diarrhea [] : Denies dysuria or hematuria [] Musculoskeletal: Denies back pain or joint pain [] Integument: Denies rash or skin lesions [] Neurologic: Denies headache, focal weakness or sensory changes [] Endocrine: Denies polyuria or polydipsia [] All other systems were reviewed and found to be within normal limits, except as documented in this note. Allergies Allergies Allergies Coded Allergies Type Severity Reaction Last Updated Verified Pmzavyb-Kru-Wdn Reductase Inhibitor Allergy Intermediate 06/16/18 No bacitracin Allergy Intermediate 06/16/18 No neomycin Allergy Intermediate 06/16/18 No polymyxin B Allergy Intermediate 06/16/18 No Iodinated Contrast Media Adverse Reaction Intermediate Hives 06/16/18 Yes Physical Exam Physical Exam Constitutional: Well developed, well nourished, no acute distress, non-toxic appearance. [] HENT: Normocephalic, atraumatic, bilateral external ears normal, oropharynx moist, no oral exudates, nose normal. [] Eyes: PERRLA, EOMI, conjunctiva normal, no discharge. [] Neck: Normal range of motion, no tenderness, supple, no stridor. [] Cardiovascular:Heart rate regular rhythm, no murmur [] Lungs & Thorax: Bilateral breath sounds clear to auscultation [] Abdomen: Bowel sounds normal, soft, no tenderness, no masses, no pulsatile masses. Robbins catheter in place Skin: Warm, dry, no erythema, no rash. [] Back: No tenderness, no CVA tenderness. [] Extremities: No tenderness, no cyanosis, no clubbing, ROM intact, no edema. [] Neurologic: Alert and oriented X 3, normal motor function, normal sensory function, no focal deficits noted. [] Psychologic: Affect normal, judgement normal, mood normal. [] Current Patient Data Vital Signs Vital Signs Date Time Temp Pulse Resp B/P (MAP) Pulse Ox O2 Delivery O2 Flow Rate FiO2 04/27/20 14:51 98.3 83 18 133/54 (80) 95 Room Air 98.3 EKG EKG [] Radiology/Procedures Radiology/Procedures [] Course & Med Decision Making Course & Med Decision Making Pertinent Labs and Imaging studies reviewed. (See chart for details) 79M presenting with nonfunctioning Robbins catheter. Robbins was flushed with a nurse here and appears to be working normally. No other abnormality at this time. Will discharge home Dragon Disclaimer Dragon Disclaimer This electronic medical record was generated, in whole or in part, using a voice recognition dictation system. Departure Departure Impression: Primary Impression: Urinary tract infection Referrals: ROXANNE DIAZ MD (PCP) Patient Instructions: Robbins Catheter Care, Adult Additional Instructions: EMERGENCY DEPARTMENT GENERAL DISCHARGE INSTRUCTIONS Thank you for coming to [facility] Emergency Department (ED) today and trusting us with you care. We trust that you had a positive experience in our Emergency Department. If you wish to speak to the department management, you may call the Director at [phone]. YOUR FOLLOW UP INSTRUCTIONS ARE FOLLOWS: 1. Do you have a private Doctor? If you do not have a private doctor, please ask for a resource list of physicians or clinics that may be able to assist you with follow up care. 2. The Emergency Physicain has interpreted your x-rays. The X-Ray specialist will also review them. If there is a change in the findings, you will be notified in 48 hours when at all possible. 3. A lab test or culture has been done, your results will be reviewed and you will be notified if you need a change in treatment. ADDITIONAL INSTRUCTIONS AND INFORMATION: 1. Your care today has been supervised by a physician who is specially trained in emergency care. Many problems require more than one evaluation for a complete diagnosis and treatment. We recommend that you schedule your follow up appointment as recommended to ensure complete treatment of you illness or injury. If you are unable to obtain follow up care and continue to have a problem, or if your condition worsens, we recommend that you return to the ED. 2. We are not able to safely determine your condition over the phone nor are we able to give sound medical advice over the phone. For these safety reasons, if you call for medical advice we will ask you to come to the ED for further evaluation. 3. If you have any questions regarding these discharge instructions please call the ED at [phone]. SAFETY INFORMATION: In the interest of safety, wellness, and injury prevention; we encourage you to wear your sealbelt, if you smoke; quite smoking, and we encourage family to use a protective helmet for bicycling and other sporting events that present an increased risk for head injury. IF YOUR SYMPTOMS WORSEN OR NEW SYMPTOMS DEVELOP, OR YOU HAVE CONCERNS ABOUT YOUR CONDITION; OR IF YOUR CONDITION WORSENS WHILE YOU ARE WAITING FOR YOUR FOLLOW UP APPOINTMENT; EITHER CONTACT YOUR PRIMARY CARE DOCTOR, THE PHYSICIAN WHOSE NAME AND NUMBER YOU WERE GIVEN, OR RETURN TO THE ED IMMEDIATELY. MIGUEL JESSICA MD Apr 27, 2020 15:06
== END 2020-04-27 15:25 | disposition home or self-care (01) ==
LOC: ER 14:42
DX: N39.0 Urinary tract infection, site not specified (principal); N40.0 Benign prostatic hyperplasia without lower urinary tract symptoms; E11.9 Type 2 diabetes mellitus without complications; I11.9 Hypertensive heart disease without heart failure; Z98.890 Other specified postprocedural states; Z91.041 Radiographic dye allergy status
CPT/HCPCS: 99281